=== PATIENT | male | born 1990 | race Caucasian/White ===

== ENCOUNTER 2017-02-01 15:10 | Emergency (ER) | payer OTHER ==
[~2017-02-01 15:10] MED LIST: BACT800T5 PO; CEPH500 PO; CLIN1CAP5 PO; IBUP600T26 PO; TRAM50 PO
[2017-02-01 15:13] VITALS: BP 125/84; PULSE 92; RESP 22; TEMP 97.9; O2SAT 100
[2017-02-01] MEDS ORDERED: SODIUM CHLOR 0.9% 1000 ML INJ 1,000 ML IV ONE ×4 (15:30→19:15)
[2017-02-01] MEDS ORDERED: RESP: ALBUTEROL 2.5 MG/IPRATROPIUM 0.5 MG NEB (SCH) NEB ONE (15:30)
[2017-02-01] MEDS ORDERED: methylPREDNISolone SOD SUCC 125 MG/2 ML VIAL IV PUSH ONE (15:30)
[2017-02-01] MEDS ORDERED: EPINEPHrine HCL (1:1000) 1 MG/ML VIAL SQ ONE (15:45)
[2017-02-01] MEDS ORDERED: PANTOPRAZOLE SODIUM 40 MG VIAL IV PUSH ONE (15:45)
[2017-02-01 15:56] LABS: AUTOMATED NEUTROPHIL # 4.9 TH/MM3 (1.8-7.7); BASOPHIL # 0.1 TH/MM3 (0-0.2); BASOPHIL % 0.7 % (0.0-2.0); EOSINOPHIL # 0.1 TH/MM3 (0-0.4); EOSINOPHIL % 1.7 % (0.0-4.0); HEMATOCRIT 45.8 % (39.0-51.0); HEMO FLAGS DIFF FINAL; LYMPH % 22.3 % (9.0-44.0); LYMPHOCYTE # 1.7 TH/MM3 (1.0-4.8); MEAN CORPUSCULAR HEMOGLOBIN 29.2 PG (27.0-34.0); MEAN CORPUSCULAR HGB CONC 33.2 % (32.0-36.0); NEUT % 63.3 % (16.0-70.0); PLATELET COUNT 189 TH/MM3 (150-450); RED CELL DISTRIBUTION WIDTH 12.8 % (11.6-17.2); WHITE BLOOD COUNT 7.7 TH/MM3 (4.0-11.0)
[2017-02-01] MEDS ORDERED: LORazepam 2 MG/ML VIAL IV PUSH ONE (16:00)
[2017-02-01 16:04] LABS: CHLORIDE 106 MEQ/L (98-107); POTASSIUM 3.7 MEQ/L (3.5-5.1); SODIUM (NA) 140 MEQ/L (136-145)
[2017-02-01 16:06] VITALS: BP 146/71; PULSE 79; RESP 18; TEMP 97.9
[2017-02-01 16:08] VITALS: BP 146/71; PULSE 70; RESP 18
[2017-02-01 16:08] LABS: ANION GAP 13 MEQ/L (5-15); BICARBONATE 21.1 MEQ/L (21.0-32.0); BLOOD UREA NITROGEN 20 MG/DL (7-18)
[2017-02-01 16:11] LABS: ALT (GPT) 121 U/L (12-78); AST (GOT) 66 U/L (15-37); GLOMERULAR FILTRATION RATE 66 ML/MIN (>89)
[2017-02-01 16:12] LABS: TOTAL BILIRUBIN ADULT 0.8 MG/DL (0.2-1.0)
[2017-02-01 16:14] LABS: ALKALINE PHOSPHATASE 68 U/L (45-117)
--- NOTE | 2017-02-01 16:30 | RADRPT ---
EXAM DATE/TIME: 02/01/2017 16:20 [facility] COMPARISON: No previous studies available for comparison. INDICATIONS : Short of breath. MEDICAL HISTORY : None. SURGICAL HISTORY : None. ENCOUNTER: Initial ACUITY: 1 day PAIN SCORE: 0/10 LOCATION: chest FINDINGS: A single view of the chest demonstrates the lungs to be symmetrically aerated without evidence of mas s, infiltrate or effusion. The cardiomediastinal contours are unremarkable. Osseous structures are intact. CONCLUSION: No acute disease. Ovi Easley MD on February 01, 2017 at 16:28 Board Certified Radiologist. This report was verified electronically.
[2017-02-01 16:52] VITALS: BP 134/85; PULSE 65; RESP 18; O2SAT 100
--- NOTE | 2017-02-01 16:58 | RADRPT ---
EXAM DATE/TIME: 02/01/2017 16:21 [facility] COMPARISON: No previous studies available for comparison. INDICATIONS : Dyspnea, evaluate obstruction in airway. MEDICAL HISTORY : None. SURGICAL HISTORY : None. ENCOUNTER: Initial ACUITY: 1 day PAIN SCORE: 0/10 LOCATION: throat FINDINGS: There is minimal deviation of the airway at the level of the true vocal cords more prominent on the r ight and left nonspecific. CONCLUSION: Normal deviation airway as described above. Ernesto Fernandes MD FACR on February 01, 2017 at 16:54 Board Certified Radiologist. This report was verified electronically.
[2017-02-01 17:00] LABS: AMPHETAMINE, URINE POS (NEG); BARBITURATES, URINE NEG (NEG); COCAINE, URINE NEG (NEG)
[2017-02-01 17:17] LABS: BLOOD, URINE NEG (NEG); GLUCOSE,URINE NEG (NEG); NITRITE,URINE NEG (NEG)
[2017-02-01 17:28] LABS: KETONE, URINE 80 OR GREATER mg/dL (NEG)
[2017-02-01 17:29] LABS: METHOD OF COLLECTION CLEAN CATCH; RBC, URINE 0-3 /hpf (0-3); URINE COLOR YELLOW (YELLW/STRAW)
[2017-02-01 17:30] LABS: CALCIUM OXALATE CRYSTALS,URINE FEW /hpf; COMMENT (UR) CULT NOT INDICATED; CULTURE IF INDICATED CULT NOT INDICATED; SQUAMOUS EPITHELIAL CELL URINE 0-5 /hpf (0-5)
[2017-02-01 17:37] LABS: CREATINE KINASE 393 U/L (39-308)
[2017-02-01 17:49] LABS: CKMB 4.4 NG/ML (0.5-3.6)
[2017-02-01] MEDS ORDERED: IOHEXOL 350 MG/ML 10 ML VIAL (for RAD DIAG) IV ONE (17:54)
--- NOTE | 2017-02-01 18:20 | RADRPT ---
EXAM DATE/TIME: 02/01/2017 17:44 [facility] COMPARISON: SOFT TISSUE NECK, February 01, 2017, 16:21. INDICATIONS : Dynspnea, abnormal radiograph. Evaluate airway. IV CONTRAST: 75 cc Omnipaque 350 (iohexol) IV RADIATION DOSE: 14.84 CTDIvol (mGy) MEDICAL HISTORY : None SURGICAL HISTORY : None. ENCOUNTER: Initial ACUITY: 1 day PAIN SCALE: 0/10 LOCATION: throat TECHNIQUE: Volumetric scanning of the neck was performed. Using automated exposure control and adjustment of th e mA and/or kV according to patient size, radiation dose was kept as low as reasonably achievable to obtain optimal diagnostic quality images. DICOM format image data is available electronically for r eview and comparison. FINDINGS: There is streak and motion artifact limiting the sensitivity. NASOPHARYNX: The nasopharyngeal airway has an apparent normal configuration. No definite mucosal thickening or ma ss is seen. OROPHARYNX: The intrinsic muscles of the tongue appear grossly symmetric. The tonsillar pillars are intact. The prevertebral soft tissues are not thickened. LARYNX: The supraglottic, glottic, and infraglottic structures are grossly unremarkable. PARAPHARYNGEAL: The parapharyngeal space. Grossly unremarkable. SALIVARY GLANDS: The parotid and submandibular glands are intact. LYMPH NODES: No enlarged or necrotic-appearing nodes. THYROID: Homogeneous enhancement without evidence of nodule. BONES: Unremarkable. CONCLUSION: 1. Suboptimal exam with streak and motion artifact limiting the sensitivity. Direct visualization may be helpful. 2. No visualized radiopaque foreign body or focal abnormality. Benji Franco MD on February 01, 2017 at 18:14 Board Certified Radiologist. This report was verified electronically.
[2017-02-01 18:37] VITALS: BP 129/72; PULSE 75; O2SAT 100
--- NOTE | 2017-02-01 19:06 | PD ---
HPI Chief Complaint: Respiratory Symptoms Time Seen by Provider: 15:20 Travel History International Travel<30 days: No Contact w/Intl Traveler<30days: No Traveled to known affect area: No History of Present Illness HPI This is a 26-year-old male patient with no past medical history who presented in moderate restrictive distress. Patient states he's had difficulty breathing 4 days intermittently. Has been working outside in the hot temperature. He states he has been drinking a great deal of water and Gatorade. Patient notes chest tightness. Patient denies fevers and chills. Patient denies use of alcohol or drug. Patient knows rapid breathing and cramping and numbness and tingling in extremities. PFSH Past Medical History Blood Disorders: No Depression: Yes (SUICIDE ATTEMPT AFTER FATHER COMMITED SUICIDE IN 2002) Cancer: No Cardiovascular Problems: No Chemotherapy: No Diminished Hearing: No Endocrine: No Gastrointestinal Disorders: No Genitourinary: No Immune Disorder: No Musculoskeletal: No Neurologic: No Psychiatric: Yes Reproductive: No Respiratory: No Radiation Therapy: No Seizures: No Thyroid Disease: No Ulcer: No Tetanus Vaccination: Unknown Influenza Vaccination: No ?: Not Past Surgical History Surgical History: No Previous Surgery AICD: No Arteriovenous Shunt: No Insulin Pump: No Joint Replacement: No Pacemaker: No Other Surgery: No Social History Alcohol Use: No Tobacco Use: Yes (1/2 PPD) Substance Use: Yes (POSITIVE FOR COCAINE AND POT ON ADMISSION) Allergies-Medications (Allergen,Severity, Reaction): Coded Allergies: Onion (Verified Allergy, Severe, Hives, 02/01/17) Uncoded Allergies: ONIONS (Allergy, Severe, Hives, 01/05/06) Reported Meds & Prescriptions Reported Meds & Active Scripts Active Review of Systems ROS Limitations: Clinical Condition General / Constitutional: No: Fever, Chills, Weight Gain, Weight Loss, Other Eyes: No: Diploplia, Blurred Vision, Photophobia, Drainage, Redness, Foreign Body Sensation, Pain, Tearing, Blind Spots, Visual changes, Blindness, Other HENT: No: Headaches, Vertigo, Lightheadedness, Sore Throat, Rhinitis, Rhinorrhea, Congestion, Nosebleed, Neck Stiffness, Neck Pain, Masses, Gingival Bleeding, Dental Difficulties, Ear Discharge, Earache, Other Cardiovascular: No: Chest Pain or Discomfort, Palpitations, Irregular Rhythm, Tachycardia, Diaphoresis, Syncope, Dyspnea on exertion, Varicosities, Edema, Cyanosis, Varicosities, Phlebitis, Claudication, Other Respiratory: Positive: Shortness of Breath, No: Cough, Wheezing, Sneezing, Orthopnea, Hemoptysis, Stridor, Night Sweats, Pleuritic Pain, Other Gastrointestinal: No: Nausea, Vomiting, Diarrhea, Abdominal Pain, Hematemesis, Hematochezia, Constipation, Changes in Bowel Habits, Indigestion, Dysphagia, Loss of Appetite, Other Genitourinary: No: Urgency, Frequency, Dysuria, Nocturia, Hematuria, Decreased Urinary Output, Oliguria, Hesitancy, Dribbling, Incontinence, Pelvic Pain, Flank Pain, Dyspareunia, Discharge, Dysmenorrhea, Menorrhagia, Metorrhagia, Vaginal Bleeding, Other Musculoskeletal: No: Myalgias, Arthralgias, Limited ROM, Weakness, Cramping, Edema, Pain, Atrophy, Other Skin: No Rash, No Itching, No Dryness, No Lumps, No Hives, No Change in Pigmentation, No Change in nails, No Alopecia, No Lesions, No Breast Lumps, No Breast Tenderness, No Breast Swelling, No Other Neurologic: Positive: Other (numbness and tingling in the extremity), No: Weakness, Dizziness, Syncope, Focal Abnormalities, Coordination Problem, Tremor , Ataxia, Headache, Change in Mentation, Slurred Speech, Paresthesia, Incontinence, Seizures, Sensory Disturbance Psychiatric: Positive: Anxiety, No: Depression, Suicidal Ideations, Disorder of Thought, Mood Disorder, Substance Abuse, Homicidal Ideation, Other Endocrine: No: Heat Intolerance, Cold Intolerance, Polyuria, Polydipsia, Other Hematologic/Lymphatic: No: Easy Bruising, Lymph Node Enlargement, Other Physical Exam Exam Limitations: Clinical Condition Narrative GENERAL: Anxious young male in moderate distress SKIN: Focused skin assessment warm/dry.no lesions no cyanosis no erythema HEAD: Atraumatic. Normocephalic. EYES: Pupils equal and round and reactive . No scleral icterus. No injection or drainage. ENT: No nasal bleeding or discharge. Very dry oral mucosa NECK: Trachea midline. No JVD. CARDIOVASCULAR: S1-S2 precordium is hyperdynamic Regular rate and rhythm. No murmur appreciated. Pulses normal throughout. RESPIRATORY: Respirations are rapid there is use of accessory muscles air movement is poor no wheezes appreciated patient is able to speak in complete sentences GASTROINTESTINAL: Abdomen soft, non-tender, nondistended. Hepatic and splenic margins not palpable. Bowel sounds normal. No peritoneal signs. MUSCULOSKELETAL: No obvious deformities. No clubbing. No cyanosis. No edema. NEUROLOGICAL: Awake and alert and oriented 3.. No obvious cranial nerve deficits. Motor and sensory exam grossly within normal limits. Normal speech. No meningeal signs. PSYCHIATRIC: . Patient is extremely agitated and anxious No suicidal or homicidal ideation. Data Data Last Documented VS Vital Signs Date Time Temp Pulse Resp B/P Pulse Ox O2 Delivery O2 Flow Rate FiO2 02/01/17 18:37 75 129/72 100 02/01/17 16:52 18 02/01/17 16:06 97.9 Nasal Cannula 5 Orders Albuterol-Ipratropium Neb (Duoneb Neb) (02/01/17 15:30) Chest, Single Ap (02/01/17 ) Sodium Chlor 0.9% 1000 Ml Inj (Ns 1000 M (02/01/17 15:30) Oxygen Administration (02/01/17 15:26) Methylprednisolone So Succ Inj (Solumedr (02/01/17 15:30) Complete Blood Count With Diff (02/01/17 15:26) Comprehensive Metabolic Panel (02/01/17 15:26) Drug Screen, Random Urine (02/01/17 15:26) Electrocardiogram (02/01/17 ) Soft Tissue Neck (02/01/17 ) Pantoprazole Inj (Protonix Inj) (02/01/17 15:45) Epinephrine (1:1000) Inj (Adrenalin (1:1 (02/01/17 15:45) Lorazepam Inj (Ativan Inj) (02/01/17 16:00) Sodium Chlor 0.9% 1000 Ml Inj (Ns 1000 M (02/01/17 16:00) Creatine Kinase (Cpk) (02/01/17 16:56) Ckmb (Isoenzyme) Profile (02/01/17 16:56) Troponin I (02/01/17 16:56) Urinalysis - C+S If Indicated (02/01/17 16:56) Ct Soft Tiss Neck W Iv Cont (02/01/17 ) CKMB (02/01/17 15:30) CKMB% (02/01/17 15:30) Iohexol 350 Inj (Omnipaque 350 Inj) (02/01/17 17:54) Sodium Chlor 0.9% 1000 Ml Inj (Ns 1000 M (02/01/17 19:00) Sodium Chlor 0.9% 1000 Ml Inj (Ns 1000 M (02/01/17 19:15) Creatine Kinase (Cpk) (02/01/17 19:02) Ckmb (Isoenzyme) Profile (02/01/17 19:02) Troponin I (02/01/17 19:02) Labs Laboratory Tests Test 02/01/17 02/01/17 02/01/17 15:30 16:40 16:44 White Blood Count 7.7 TH/MM3 Red Blood Count 5.20 MIL/MM3 Hemoglobin 15.2 GM/DL Hematocrit 45.8 % Mean Corpuscular Volume 88.0 FL Mean Corpuscular Hemoglobin 29.2 PG Mean Corpuscular Hemoglobin 33.2 % Concent Red Cell Distribution Width 12.8 % Platelet Count 189 TH/MM3 Mean Platelet Volume 9.3 FL Neutrophils (%) (Auto) 63.3 % Lymphocytes (%) (Auto) 22.3 % Monocytes (%) (Auto) 12.0 % Eosinophils (%) (Auto) 1.7 % Basophils (%) (Auto) 0.7 % Neutrophils # (Auto) 4.9 TH/MM3 Lymphocytes # (Auto) 1.7 TH/MM3 Monocytes # (Auto) 0.9 TH/MM3 Eosinophils # (Auto) 0.1 TH/MM3 Basophils # (Auto) 0.1 TH/MM3 CBC Comment DIFF FINAL Differential Comment Sodium Level 140 MEQ/L Potassium Level 3.7 MEQ/L Chloride Level 106 MEQ/L Carbon Dioxide Level 21.1 MEQ/L Anion Gap 13 MEQ/L Blood Urea Nitrogen 20 MG/DL Creatinine 1.30 MG/DL Estimat Glomerular Filtration 66 ML/MIN Rate Random Glucose 78 MG/DL Calcium Level 9.5 MG/DL Total Bilirubin 0.8 MG/DL Aspartate Amino Transf 66 U/L (AST/SGOT) Alanine Aminotransferase 121 U/L (ALT/SGPT) Alkaline Phosphatase 68 U/L Total Creatine Kinase 393 U/L Creatine Kinase MB 4.4 NG/ML Creatine Kinase MB % 1.1 % Troponin I LESS THAN 0.02 NG/ML Total Protein 7.8 GM/DL Albumin 4.1 GM/DL Urine Opiates Screen NEG Urine Barbiturates Screen NEG Urine Amphetamines Screen POS Urine Benzodiazepines Screen NEG Urine Cocaine Screen NEG Urine Cannabinoids Screen POS Urine Collection Type CLEAN CATCH Urine Color YELLOW Urine Turbidity CLEAR Urine pH 6.0 Urine Specific [place] 1.032 Urine Protein TRACE mg/dL Urine Glucose (UA) NEG mg/dL Urine Ketones 80 OR GREATER mg/dL Urine Occult Blood NEG Urine Nitrite NEG Urine Bilirubin NEG Urine Leukocyte Esterase NEG Urine RBC 0-3 /hpf Urine Squamous Epithelial 0-5 /hpf Cells Urine Calcium Oxalate Crystals FEW /hpf Microscopic Urinalysis Comment CULT NOT INDICATED Urine Collection Time 16:44 [facility] Medical Decision Making Medical Screen Exam Complete: Yes Emergency Medical Condition: Yes Medical Record Reviewed: Yes Interpretation(s) EKG shows normal sinus rhythm early repolarization and no acute ST changes Auscultation neck x-ray shows some mild deviation and questionable density in the air column CT soft tissue neck ordered CT neck soft tissue remarked Chest x-ray shows mild hyperinflation WBC is normal CPK total 393 increase BUN 20 h UA shows ketones of 80 h Differential Diagnosis Differential diagnoses acute asthma exacerbation COPD drug intoxication heat illness and dehydration hyperventilation syndrome Critical Care Narrative Patient presented in moderate respiratory distress heart rate 110 range respiratory rate greater than 25 patient complained of severe distress but speaking in complete sentences patient states throat felt like it is closing page infused normal saline 2 L rapidly with improvement in heart rate patient given supplemental oxygen at 6 L that attempting nonrebreather placement of oxygen that was rapidly removed this patient felt claustrophobic DuoNeb given along with IV Protonix 40 mg and IV Solu-Medrol 125 mg Patient subsequently had a marked decrease in heart rate to the 70s and respirations improved dramatically after giving 0.5 of Ativan IV X-ray of the soft tissue neck reveals some deviation of the air column questionable density in the air column CT soft tissue neck performed and negative Chest x-ray shows hyperinflation WBC normal urine increased and the CPK total was increased at 393 UA shows 80 h plan was to infuse 1-2 liters more of normal saline and to repeat the cardiac profile specifically to look at the CPK total EKG shows a nonischemic pattern patient only accepted the start of the third liter patient does not want to stay for repeat CPK ration awake and alert and oriented 3 and drug screen positive for methamphetamines and marijuana and states he smoked marijuana every day patient signed out AMA awake and alert and oriented and ambulatory without difficulty in no respiratory distress Procedures EKG Prior to Arrival: No Diagnosis Primary Impression: Left against medical advice Additional Impressions: Heat illness Illicit drug use Acute respiratory distress resolved Patient Instructions: Amphetamine (By mouth), Anxiety (DC), Cannabis Abuse (DC ), Dehydration (DC), General Instructions, Heat Exhaustion (DC) Additional Instructions: Bed rest as directed return at any time for continuation of care Date well hydrated drink electrolyte containing solutions Avoid extended periods of time in hot weather Avoid drug and alcohol use Selected primary care doctor follow-up with them within 1 week Return if symptoms persist or worsen if you pass out have Chest pain shortness of breath weakness or numbness in arms and legs Disposition: 07 AGAINST MEDICAL ADVICE Condition: Stable Jonas Fontenot MD Feb 01, 2017 19:06
--- NOTE | 2017-02-02 08:00 | EKG ---
Date Performed: 02/01/2017 Time Performed: 16:36:44 PTAGE: 26 years EKG: Sinus rhythm WITH SINUS ARRHYTHMIA MODERATE INTRAVENTRICULAR CONDUCTION DELAY ST ELEVATION, PROBABLY EARLY REPOLA RIZATION BORDERLINE ECG PREVIOUS TRACING : 02/01/2017 15.44 DOCTOR: Tony Mendoza Interpretating Date/Time 02/02/2017 07:55:33
--- NOTE | 2017-02-02 08:02 | EKG ---
Date Performed: 02/01/2017 Time Performed: 15:44:46 PTAGE: 26 years EKG: SINUS TACHYCARDIA ST ELEVATION CONSISTENt, PERICARDITIS, OR EARLY REPOLARIZATION ABNORMAL E CG NO PREVIOUS TRACING DOCTOR: Tony Mendoza Interpretating Date/Time 02/08/2017 06:48:05
== END 2017-02-01 19:46 | disposition left against medical advice (07) ==
LOC: PHED 15:10
DX: R06.00 Dyspnea, unspecified (principal); F19.10 Other psychoactive substance abuse, uncomplicated
CPT/HCPCS: 70360; 70491; 71010; 80053; 80307; 81001; 82550; 82552; 84484; 85025; 93005; 94664; 96361; 96374; 96375; 99285; C9113; J2060; J2930; J7030; Q9967

== ENCOUNTER 2017-07-24 20:58 | Emergency (ER) | payer SELFPAY ==
[~2017-07-24] VITALS: Ht 172.7 cm; Wt 68.2 kg
[2017-07-24 21:02] VITALS: BP 149/81; PULSE 107; RESP 16; TEMP 98.7; O2SAT 98
[2017-07-25] MEDS ORDERED: BACT800T5 PO (02:47)
--- NOTE | 2017-07-29 11:28 | PD ---
Physical Exam Date Seen by Provider: Jul 24, 2017 Time Seen by Provider: 21:10 Narrative 27-year-old male presents to the emergency department for evaluation of itching , intermittent fever, intermittent vomiting that has been ongoing for the past 4 months. He states he has been to multiple ERs over the past 4 months 9 times. He reports that he has been to [facility] and [facility]. Patient is initially seen in triage. Further workup and evaluation will be completed once patient is transferred to medical bed. [facility] Medical Record Reviewed: Yes Supervised Visit with DANILO: No Narrative Course 27-year-old male presents to the emergency department for evaluation of cold symptoms have been ongoing for 4 months. He reports being in the ER 9 times at different hospitals for the same symptoms. He appears well in triage. The patient will be transferred to medical bed for further evaluation and disposition. Before medical bed became available, the patient left AGAINST MEDICAL ADVICE. Diagnosis Primary Impression: Left against medical advice Additional Impression: Vomiting Qualified Codes: R11.10 - Vomiting, unspecified Disposition: 07 AGAINST MEDICAL ADVICE Antonieta Rascon Jul 29, 2017 11:28
== END 2017-07-24 23:54 | disposition left against medical advice (07) ==
LOC: NETRI 20:58
DX: R11.10 Vomiting, unspecified (principal)
CPT/HCPCS: 99281

== ENCOUNTER 2017-07-25 01:03 | Emergency (ER) | payer SELFPAY ==
[~2017-07-25] VITALS: Ht 172.7 cm; Wt 70.0 kg
[2017-07-25 01:04] VITALS: BP 119/78; PULSE 98; RESP 18; TEMP 98.3; O2SAT 98
[2017-07-25] MEDS ORDERED: BACT800T5 PO (02:47)
--- NOTE | 2017-07-25 02:50 | PD ---
HPI Chief Complaint: Medical Clearance Time Seen by Provider: 02:43 Travel History International Travel<30 days: No Contact w/Intl Traveler<30days: No Traveled to known affect area: No History of Present Illness HPI 27-year-old white male presents to emergency department with complains of painful pustules on his lower extremities. He states that he's concerned that this was from getting exposed to chemicals or possible gasoline. The patient denies any fever or chills. He states that he has had these on and off now for several months. He's been to the ER multiple times. He denies any fever or chills. No shortness of breath or wheezing. He denies any history of staph infections. PFSH Past Medical History Blood Disorders: No Depression: Yes (SUICIDE ATTEMPT AFTER FATHER COMMITED SUICIDE IN 2002) Cancer: No Cardiovascular Problems: No Chemotherapy: No Diabetes: No Diminished Hearing: No Endocrine: No Gastrointestinal Disorders: No Genitourinary: No Immune Disorder: No Musculoskeletal: No Neurologic: No Psychiatric: Yes Reproductive: No Respiratory: No Immunizations Current: Yes Radiation Therapy: No Seizures: No Thyroid Disease: No Ulcer: No Past Surgical History Surgical History: No Previous Surgery AICD: No Arteriovenous Shunt: No Insulin Pump: No Joint Replacement: No Pacemaker: No Other Surgery: No Social History Alcohol Use: Yes Tobacco Use: Yes (1/2 PPD) Substance Use: Yes (OPIATES, METH, WEED ) Allergies-Medications (Allergen,Severity, Reaction): Coded Allergies: onion (Unverified Allergy, Severe, Hives, 07/25/17) Uncoded Allergies: ONIONS (Allergy, Severe, Hives, 01/05/06) Reported Meds & Prescriptions Reported Meds & Active Scripts Active Bactrim DS (Sulfamethoxazole-Trimethoprim) 800-160 Mg Tab 1 Tab PO BID Review of Systems General / Constitutional: No: Fever Eyes: No: Visual changes HENT: No: Headaches Cardiovascular: No: Chest Pain or Discomfort Respiratory: No: Shortness of Breath Gastrointestinal: No: Abdominal Pain Genitourinary: No: Dysuria Musculoskeletal: No: Pain Skin: No Rash Neurologic: No: Weakness Psychiatric: No: Depression Endocrine: No: Polydipsia Hematologic/Lymphatic: No: Easy Bruising Physical Exam Narrative GENERAL: This is a well-nourished, well-developed patient, in no apparent distress. SKIN: Patient has multiple superficial follicular pustular lesions on his lower extremities. No Ecchymoses. Warm and dry. HEAD: Atraumatic. Normocephalic. EYES: PERRL, EOMI, no discharge or injection. No scleral icterus. EARS: Clear NOSE: Nasal turbinates appear normal. THROAT: Mucosa pink and moist. Airway patent. NECK: Trachea midline. supple, moves head freely. LUNGS: Clear to auscultation. CV: Regular in rhythm. ABDOMEN: Soft nontender. EXT: No clubbing cyanosis or edema. Data Data Last Documented VS Vital Signs Date Time Temp Pulse Resp B/P (MAP) Pulse Ox O2 Delivery O2 Flow Rate FiO2 07/25/17 01:04 98.3 98 18 119/78 (92) 98 Room Air Orders Orders Ed Discharge Order (07/25/17 02:46) Sulfamet-Trimeth Ds 800-160 Mg (Bactrim (07/25/17 03:00) MDM Medical Decision Making Medical Screen Exam Complete: Yes Emergency Medical Condition: Yes Medical Record Reviewed: Yes Differential Diagnosis MDM: High Differential diagnoses: Abscess, folliculitis, cellulitis, lymphangitis, abrasion, contact dermatitis Narrative Course Patient's given Bactrim DS. This is folliculitis Diagnosis Primary Impression: Folliculitis Patient Instructions: General Instructions Additional Instructions: Rest. Elevation. keep clean and dry. Warm compresses. Daily wound care with soap, water and Neosporin. Three Advil every 6 hours. Bactrim DS. Follow-up with a primary care doctor in one week. Return to the ER for any problems. Med/Other Pt SpecificInfo: Prescription(s) given Scripts Sulfamethoxazole-Trimethoprim (Bactrim DS) 800-160 Mg Tab 1 TAB PO BID for Infection, #20 TAB 0 Refills Prov: Mainor Gooden MD 07/25/17 Condition: Stable Chai Julio Jul 25, 2017 02:50
[2017-07-25] MEDS ORDERED: SULFAMETHOXAZOLE-TRIMETHOPRIM DS 800-160 MG TAB PO ONE (03:00)
== END 2017-07-25 03:04 | disposition home or self-care (01) ==
LOC: NEPD 01:03
DX: L73.9 Follicular disorder, unspecified (principal); F17.200 Nicotine dependence, unspecified, uncomplicated
CPT/HCPCS: 99283

== ENCOUNTER 2017-11-12 16:49 | Emergency (ER) | payer SELFPAY ==
[~2017-11-12 16:49] MED LIST changes: -CEPH500 PO; -CLIN1CAP5 PO; -IBUP600T26 PO; -TRAM50 PO
--- NOTE | 2017-11-12 17:19 | PD ---
HPI Chief Complaint: Drug overdose Time Seen by Provider: 17:11 Travel History International Travel<30 days: No Contact w/Intl Traveler<30days: No History of Present Illness HPI 27-year-old man presents to the emergency department brought in by friends after he took ice and drugs today for the first time after getting out of senior living a couple days ago and reportedly started acting bizarre. They are worried that he may have had a seizure. History is extremely limited. Patient states that he feels fine and does not want to be in the hospital. Appears very anxious and somewhat paranoid. Friend clarifies that he is on probation and is worried about getting into trouble. Almost immediately upon evaluation patient started walking away from the room and out of the hospital. History Past Medical History Medical History: Unable to Obtain Social History Alcohol Use: Yes Tobacco Use: Yes (2 PPD) Allergies-Medications (Allergen,Severity, Reaction): Coded Allergies: onion (Unverified Allergy, Severe, Hives, 07/25/17) Uncoded Allergies: ONIONS (Allergy, Severe, Hives, 01/05/06) Reported Meds & Prescriptions Reported Meds & Active Scripts Active Bactrim DS (Sulfamethoxazole-Trimethoprim) 800-160 Mg Tab 1 Tab PO BID Review of Systems ROS Limitations: Refused Physical Exam Narrative GENERAL: 27-year-old man, awake alert, anxious and a little bit hypervigilant. SKIN: Warm. No obvious rashes. HEAD: Atraumatic. Normocephalic. EYES: Pupils equal and round. No scleral icterus. No injection or drainage. ENT: No nasal bleeding or discharge. Mucous membranes pink and moist. NECK: Trachea midline. No JVD. CARDIOVASCULAR: Heart rate appears older rapid. Warm and well-perfused. RESPIRATORY: No accessory muscle use. Clear to auscultation. Breath sounds equal bilaterally. GASTROINTESTINAL: Abdomen soft, non-tender, nondistended. Hepatic and splenic margins not palpable. MUSCULOSKELETAL: No obvious deformities. No edema. No injury. NEUROLOGICAL: Awake and alert. No obvious cranial nerve deficits. Motor grossly within normal limits. Normal speech. Normal gait. PSYCHIATRIC: Anxious, little bit hypervigilant. MDM Medical Decision Making Medical Screen Exam Complete: Yes Emergency Medical Condition: Yes Differential Diagnosis Drug overdose, adverse reaction, seizure, other Narrative Course Is a 27-year-old man who was brought by his friends emergency department after apparent adverse reaction to illicit drugs. Immediately upon arrival patient got up and wanted to leave. Then and girlfriend came back with them. They were unable to convince him to stay. He began leaving and would have required physical restraint to keep him in the bed. At this point, I do not see any evidence of eminent risk to himself or others and as such have no legal authority to keep him involuntarily. Cousin states that he appears to be making a lot more sense in seems a lot better now than he was in a car. He states that he was just released from senior living and think that he did too much drugs made him paranoid. Patient eloped himself out of the hospital, and left. Diagnosis Primary Impression: Left against medical advice Additional Impression: Illicit drug use Esau Palencia MD Nov 12, 2017 17:19
== END 2017-11-12 19:41 | disposition left against medical advice (07) ==
LOC: NEPE 16:49
DX: F19.90 Other psychoactive substance use, unspecified, uncomplicated (principal); F17.200 Nicotine dependence, unspecified, uncomplicated
CPT/HCPCS: 99281